=== PATIENT | female | born 1985 | race Asian ===

== ENCOUNTER → 2020-07-30 | Outpatient (CLI) | payer OTHER ==
[2020-07-31 04:06] LABS: RUBEOLA (MEASLES) IGG <13.5 AU/mL (Immune >16.4)
== END | disposition home or self-care (01) ==
LOC: LABPV 10:36
PROVIDERS: ATTEND Internal Medicine
DX: Z02.1 Encounter for pre-employment examination (principal)
CPT/HCPCS: 86706; 86735; 86762; 86765; 86787